=== PATIENT | female | born 1970 | race Caucasian/White ===

== ENCOUNTER 2017-04-29 14:33 | Emergency (ER) | payer OTHER, MEDICARE ==
--- NOTE | 2017-04-29 19:41 | EDM.PDOC ---
ED HPI GENERAL MEDICAL PROBLEM - General Chief Complaint: Lower Extremity Injury/Pain Stated Complaint: POSSIBLE BROKEN ANKLE Time Seen by Provider: 04/29/17 14:55 Source of Information: Reports: Patient History Limitations: Reports: No Limitations - History of Present Illness INITIAL COMMENTS - FREE TEXT/NARRATIVE: HISTORY AND PHYSICAL: History of present illness: [Patient comes to the emergency room complaining of right foot pain. States that she was out shopping with her when she missed a step and bent her right foot. She's complained of pain and swelling and bruising since the incident occurred. She is visiting her who is here working from [place]. She has no numbness or tingling but complains of pain with flexion and extension of her right foot. She's tender with palpation over the lateral dorsal aspect of her right foot. She has not taken any medication for his symptoms.] Review of systems: As per history of present illness and below otherwise all systems reviewed and negative. Past medical history: As per history of present illness and as reviewed below otherwise noncontributory. Surgical history: As per history of present illness and as reviewed below otherwise noncontributory. Social history: No reported history of drug or alcohol abuse. Family history: As per history of present illness and as reviewed below otherwise noncontributory. Physical exam: HEENT: Atraumatic, normocephalic. Extremities: Swelling and ecchymosis is present to the lateral dorsum of right foot. Is exquisitely tender with palpation. No erythema or other sign of injury. Motor and sensory intact. Pedal pulse 2+. Neurovascular unremarkable. Neuro: Awake, alert, oriented. Motor and sensory unremarkable throughout. Exam nonfocal. Diagnostics: [Right foot and ankle x-ray, right foot and ankle CT] Impression: [Right lateral navicular fracture, nondisplaced Chip fracture dorsal aspect of talar neck.] Plan: [X-ray shows no acute fractures. Patient's pain is disproportionate for a sprain and so a CT is ordered and completed. CT shows a small nondisplaced fracture of the lateral navicular bone adjacent to the calcaneonavicular coalition. There is also a chip type fracture of the dorsal aspect of the talar neck. patient's condition is reviewed with Dr. Davalos who is on-call for orthopedics. He recommends a posterior leg splint and follow up with podiatry early next week. Right posterior leg splint is applied. Referral is given for podiatry follow-up. Rx given for hydrocodone 5/325 #15 take 1 by mouth every 4- 6 hours as needed for pain 0 refills. Ibuprofen for inflammation. Rest ice compression and elevation. Patients in agreement with today's plan. All questions are answered and concerns are addressed.] Definitive disposition and diagnosis as appropriate pending reevaluation and review of above. right foot Pain Score (Numeric/FACES): 8 - Related Data Allergies Allergy/AdvReac Type Severity Reaction Status Date / Time Penicillins Allergy Rash Verified 04/29/17 14:54 Sulfa (Sulfonamide Allergy Confusion Verified 04/29/17 14:54 Antibiotics) Home Meds: Home Meds ALPRAZolam [Xanax] 0.5 mg PO ASDIRECTED 04/29/17 [History] Albuterol Sulfate [Proair Hfa] 8.5 gm IH ASDIRECTED 04/29/17 [History] Fluticasone Propionate [Flonase] 0 gm NASBOTH DAILY 04/29/17 [History] Olmesartan [Benicar] 20 mg PO DAILY 04/29/17 [History] Past Medical History - Past Health History Medical/Surgical History: Denies Medical/Surgical History HEENT History: Reports: Impaired Vision Cardiovascular History: Reports: Hypertension Respiratory History: Reports: Asthma Psychiatric History: Reports: Anxiety, Depression Social & Family History - Family History Family Medical History: Noncontributory - Tobacco Use Smoking Status *Q: Never Smoker - Recreational Drug Use Recreational Drug Use: No Review of Systems - Review of Systems Review Of Systems: ROS reveals no pertinent complaints other than HPI. ED EXAM, GENERAL - Physical Exam Exam: See Below Course - Vital Signs Last Recorded V/S: Last Vital Signs Temp 98.2 F 04/29/17 14:56 Pulse 83 04/29/17 18:35 Resp 16 04/29/17 18:35 BP 130/84 04/29/17 18:35 Pulse Ox 97 04/29/17 18:35 - Orders/Labs/Meds Orders: Active Orders 24 hr Category Date Time Status Ankle Min 3V Rt [CR] Stat Exams 04/29/17 15:04 Taken Ankle wo Cont Rt [CT] Stat Exams 04/29/17 16:39 Taken Foot 2V Rt [CR] Stat Exams 04/29/17 15:04 Taken Foot wo Cont Rt [CT] Stat Exams 04/29/17 16:39 Taken Departure - Departure Time of Disposition: 19:40 Disposition: Home, Self-Care 01 Condition: Good Clinical Impression: Foot fracture, right Qualifiers: Encounter type: initial encounter Fracture type: closed Qualified Code(s): S92.901A - Unspecified fracture of right foot, initial encounter for closed fracture - Discharge Information Referrals: PCP,Not In Area [Primary Care Provider] - Forms: ED Department Discharge Additional Instructions: The following information is given to patients seen in the emergency department who are being discharged to home. This information is to outline your options for follow-up care. We provide all patients seen in our emergency department with a follow-up referral. The need for follow-up, as well as the timing and circumstances, are variable depending upon the specifics of your emergency department visit. If you don't have a primary care physician on staff, we will provide you with a referral. We always advise you to contact your personal physician following an emergency department visit to inform them of the circumstance of the visit and for follow-up with them and/or the need for any referrals to a consulting specialist. The emergency department will also refer you to a specialist when appropriate. This referral assures that you have the opportunity for follow-up care with a specialist. All of these measure are taken in an effort to provide you with optimal care, which includes your follow-up. Under all circumstances we always encourage you to contact your private physician who remains a resource for coordinating your care. When calling for follow-up care, please make the office aware that this follow-up is from your recent emergency room visit. If for any reason you are refused follow-up, please contact the [facility] emergency department at and asked to speak to the emergency department charge nurse. [facility] [address] [place] [address]. [facility] [id number] Follow-up with podiatry clinic next week. Call on Monday and get an appointment scheduled for next week. Rest, ice pack, wear leg splint and use crutches, elevate leg. Recommend nonweightbearing until you're seen by podiatry. Return to ER as needed as discussed. - My Orders Last 24 Hours: My Active Orders 04/29/17 15:04 Ankle Min 3V Rt [CR] Stat Foot 2V Rt [CR] Stat 04/29/17 16:39 Ankle wo Cont Rt [CT] Stat Foot wo Cont Rt [CT] Stat - Assessment/Plan Last 24 Hours: My Active Orders 04/29/17 15:04 Ankle Min 3V Rt [CR] Stat Foot 2V Rt [CR] Stat 04/29/17 16:39 Ankle wo Cont Rt [CT] Stat Foot wo Cont Rt [CT] Stat
[2017-04-29 20:25] VITALS: BP 127/81
--- NOTE | 2017-05-01 13:21 | CR ---
EXAM DATE: 04/29/17 PATIENT'S AGE: 46 Patient: CHANI BLACK Facility: [place], [place] Site . Site : 1970 Study: XRay Extremity Right [id number] foot-04/29/2017 3:29:13 PM Ordering Physician: Doctor Malave Final Report: INDICATION: Right Foot and Ankle Pain TECHNIQUE: Two views of the right foot COMPARISON: None FINDINGS: Bones: Crescentic ossific density along the dorsal aspect of the head of the talus with no discrete surrounding soft tissue swelling. Enthesophyte formation along the plantar aspect of the calcaneus Achilles tendon insertion to the calcaneus. Joint spaces: Unremarkable. Soft tissues: Unremarkable. IMPRESSION: Crescentic ossific density along the dorsal aspect of the head of the talus with no discrete surrounding soft tissue swelling. Please correlate with point tenderness. This is an age indeterminate avulsion type injury. Dictated by Landon Dorsey MD @ 04/29/2017 3:48:19 PM Dictated by: Landon Dorsey MD @ 04/29/2017 15:48:38 (Electronic Signature) Report Signed by Proxy. MARISEL
--- NOTE | 2017-05-01 13:22 | CR ---
EXAM DATE: 04/29/17 PATIENT'S AGE: 46 Patient: CHANI BLACK Facility: [place], [place] Site . Site : 1970 Study: XRay Extremity Right [id number] ankle-04/29/2017 3:27:45 PM Ordering Physician: Doctor Malave Final Report: Findings: Right foot ankle pain soft tissue swelling. Findings : Normal alignment. Talar dome appears intact. Ankle mortise is preserved. Calcaneal spurs. No definite fractures. Slight density seen along the dorsal talus could be artifactual versus age-indeterminate avulsion type injury. Dictated by Radha Pinto MD @ Apr 29 2017 3:39PM (Electronic Signature) Report Signed by Proxy. MARISEL
--- NOTE | 2017-05-01 13:28 | CT ---
EXAM DATE: 04/29/17 PATIENT'S AGE: 46 Patient: CHANI BLACK Facility: [place], [place] Site . Site : 1970 Study: CT Extremity Right [id number] foot-04/29/2017 5:56:15 PM Ordering Physician: Doctor Malave Final Report: HISTORY: Foot pain after falling injury. Findings: The foot was studied in the axial plane. Sagittal and coronal 2 dimensional reconstructions were then performed. 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 This is a developmental variation. In the navicular bone laterally adjacent to the area of coalition there is a small nondisplaced fracture present as noted on images 159-172 of series 210. The large majority of the navicular bone appears intact. In addition there is a chip type fracture off the dorsal talar neck as noted on images 24-28 of series 208. No other fractures are noted throughout the midfoot or forefoot. No significant arthritic changes are noted. No dislocation or subluxation is present. There is dorsal soft tissue swelling overlying the midfoot. Impression: 1. 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 There is a small nondisplaced fracture of the lateral navicular bone adjacent to the region of the coalition. 2. Chip type fracture off the dorsal aspect of the talar neck. 3. Findings were called to the emergency room at 6:50 p.m.. Please note that all CT scans at this facility use dose modulation, iterative reconstruction, and/or weight-based dosing when appropriate to reduce radiation dose to as low as reasonably achievable. Dictated by Sriram Connelly MD @ Apr 29 2017 6:38PM (Electronic Signature) Report Signed by Proxy. MARISEL
--- NOTE | 2017-05-01 13:29 | CT ---
EXAM DATE: 04/29/17 PATIENT'S AGE: 46 Patient: CHANI BLACK Facility: [place], [place] Site . Site : 1970 Study: CT Extremity Right [id number] ankle-04/29/2017 5:56:36 PM Ordering Physician: Doctor Malave Final Report: HISTORY: Ankle pain after falling injury. Findings: The ankle studied in the axial plane. Sagittal and coronal 2 dimensional reconstructions were then performed. The ankle joint space is normally maintained without arthritic change. There is no evidence for fracture in the region of the ankle joint. There is a comminuted chip type fracture off the dorsum of the distal talar neck. In addition there is a large calcaneonavicular coalition which is a developmental variation. This is partially bony and partially fibrous. There is a small nondisplaced fracture along the lateral margin of the navicular bone adjacent to the region of coalition. Impression: 1. Comminuted chip type fracture off the dorsum of the distal talar neck. No findings for fracture in the region of the ankle joint. 2. Large calcaneonavicular coalition as discussed with small nondisplaced fracture of the lateral navicular bone adjacent to the region of coalition. 3. These findings were called to the emergency room at 6:50 p.m. Please note that all CT scans at this facility use dose modulation, iterative reconstruction, and/or weight-based dosing when appropriate to reduce radiation dose to as low as reasonably achievable. Dictated by Sriram Connelly MD @ Apr 29 2017 6:55PM (Electronic Signature) Report Signed by Proxy. MTDD
== END 2017-04-29 20:08 | disposition home or self-care (01) ==
LOC: MW.ED 14:33
DX: S92.254A Nondisplaced fracture of navicular [scaphoid] of right foot, initial encounter for closed fracture (principal); S92.11 Fracture of neck of talus; I10 Essential (primary) hypertension; J45.909 Unspecified asthma, uncomplicated; Z88.0 Allergy status to penicillin; Z88.2 Allergy status to sulfonamides; Z79.899 Other long term (current) drug therapy; W10.9XXA Fall (on) (from) unspecified stairs and steps, initial encounter; Y92.513 Shop (commercial) as the place of occurrence of the external cause
CPT/HCPCS: 29515; 73610-26-RT; 73610-RT; 73620-26-RT; 73620-RT; 73700-26-RT; 73700-RT; 99283; 99284-25